=== PATIENT | female | born 1955 | race Caucasian/White ===

== ENCOUNTER 2017-01-24 13:00 | Emergency (ER) | payer OTHER ==
[~2017-01-24] VITALS: Ht 170.2 cm; Wt 75.0 kg
[~2017-01-24 13:00] MED LIST: ACET325S8 PO; ALBU17I INH; AMLO2.5T PO; ATOR20TA PO; CALC600T44 PO; CHOL50006 PO; FISH1000 PO; FLUT1SPR9; HYDR-2768 PO; LOSA50TA PO; METF500 PO; OMEP20TA39 PO; TAB-TAB PO; VITA100O PO
[2017-01-24 13:36] VITALS: BP 151/80; PULSE 80; RESP 18; TEMP 97.7; O2SAT 96
[2017-01-24] MEDS ORDERED: SODIUM CHLOR 0.9% 1000 ML INJ 1,000 ML IV ONE (13:45)
[2017-01-24] MEDS ORDERED: SODIUM CHLORIDE 0.9% FLUSH 5 ML FLUSH IVF PRN (13:45)
[2017-01-24 14:00] VITALS: RESP 18; O2SAT 96
[2017-01-24] MEDS ORDERED: FISH1000 PO (14:12)
[2017-01-24] MEDS ORDERED: ACET-703 PO (14:12)
[2017-01-24] MEDS ORDERED: ESTR42.5V PV (14:12)
[2017-01-24] MEDS ORDERED: CALTCHW5 PO (14:12)
[2017-01-24] MEDS ORDERED: [UNRECOGNIZED DRUG - OTHER] EACH EYE (14:12)
[2017-01-24] MEDS ORDERED: HYDR25TA5 PO (14:12)
[2017-01-24] MEDS ORDERED: FLUT50SP EACH NARE (14:12)
[2017-01-24] MEDS ORDERED: METF500T PO (14:12)
[2017-01-24] MEDS ORDERED: NATU400T PO (14:12)
[2017-01-24] MEDS ORDERED: LIPI20TA PO (14:12)
[2017-01-24] MEDS ORDERED: LOSA50TA PO (14:12)
[2017-01-24] MEDS ORDERED: TRAM50TA PO (14:12)
[2017-01-24] MEDS ORDERED: VITA200012 PO (14:12)
--- NOTE | 2017-01-24 14:26 | RADRPT ---
EXAM DATE/TIME: 01/24/2017 13:52 [facility] COMPARISON: No previous studies available for comparison. INDICATIONS : Lower chest and back pain. MEDICAL HISTORY : cyst on her liver. SURGICAL HISTORY : None. ENCOUNTER: Initial ACUITY: 1 day PAIN SCORE: Non-responsive. LOCATION: Bilateral chest FINDINGS: A single view of the chest demonstrates the lungs to be symmetrically aerated without evidence of mas s, infiltrate or effusion. The cardiomediastinal contours are unremarkable. Scoliotic deformity is i dentified in the thoracic spine. CONCLUSION: No acute disease. Carlos Blanac MD on January 24, 2017 at 14:24 Board Certified Radiologist. This report was verified electronically.
[2017-01-24 14:33] LABS: AUTOMATED NEUTROPHIL # 10.6 TH/MM3 (1.8-7.7); BASOPHIL # 0.1 TH/MM3 (0-0.2); BASOPHIL % 0.4 % (0.0-2.0); EOSINOPHIL % 0.2 % (0.0-4.0); HEMATOCRIT 35.8 % (35.0-46.0); HEMO FLAGS DIFF FINAL; LYMPH % 6.8 % (9.0-44.0); LYMPHOCYTE # 0.9 TH/MM3 (1.0-4.8); MEAN CELL VOLUME 96.3 FL (80.0-100.0); MEAN CORPUSCULAR HGB CONC 32.2 % (32.0-36.0); MONO % 8.7 % (0.0-8.0); NEUT % 83.9 % (16.0-70.0); PLATELET COUNT 266 TH/MM3 (150-450); RED BLOOD COUNT 3.72 MIL/MM3 (4.00-5.30); RED CELL DISTRIBUTION WIDTH 13.7 % (11.6-17.2); WHITE BLOOD COUNT 12.6 TH/MM3 (4.0-11.0)
--- NOTE | 2017-01-24 15:04 | PD ---
HPI Chief Complaint: Syncope/Near-Syncope Time Seen by Provider: 14:04 Travel History International Travel<30 days: No Contact w/Intl Traveler<30days: No Traveled to known affect area: No History of Present Illness HPI 61 y/o female presents with near syncopal event today at work. She states she' s had this before and been told it was a vasovagal episode. She states she's had pain to her right back side and into her abdomen over the past couple of days. She denies other associated complaints such as chest pain, difficulty breathing, fever or other concurrent symptoms. She states she was helped to the ground and did not hit her head or black out. She denies prior routine cardiac testing but also denies any history of cardiac issues that she knows about. PFSH Past Medical History Asthma: Yes Cancer: Yes (SKIN CANCER) Cardiovascular Problems: Yes High Cholesterol: Yes Chemotherapy: No Chest Pain: No Congestive Heart Failure: No Diabetes: Yes Patient Takes Glucophage: Yes (01/24/2017) Endocrine: Yes Genitourinary: No Hiatal Hernia: No Hypertension: Yes Immune Disorder: No Musculoskeletal: Yes (arthritis) Neurologic: No Psychiatric: No Reproductive: No Respiratory: Yes Immunizations Current: Yes Radiation Therapy: No Sleep Apnea: No ?: Not Past Surgical History Abdominal Surgery: Yes (gallbladder removal,hernia repair) Cholecystectomy: Yes Other Surgery: Yes (SKIN CANCER REMOVAL /THORACIC OUTLET SYNDROME SHANDS 2009/ ANGIO PLASTY ) Social History Alcohol Use: No Tobacco Use: No Substance Use: No Allergies-Medications (Allergen,Severity, Reaction): Coded Allergies: Penicillin (Verified Allergy, Severe, 01/24/17) Adhesives (Verified Allergy, Intermediate, blisters, 01/24/17) Erythromycin (Verified Allergy, Intermediate, 01/24/17) Ibuprofen (Verified Allergy, Intermediate, 01/24/17) Keflex (Verified Allergy, Intermediate, 01/24/17) Lisinopril (Verified Allergy, Mild, 01/24/17) Latex (Verified Allergy, Unknown, reddness, 01/24/17) Aspirin (Verified Adverse Reaction, Mild, 01/24/17) Reported Meds & Prescriptions Reported Meds & Active Scripts Active Lortab (Hydrocodone-Acetaminophen) 5-325 Mg Tab 1 Tab PO Q6H PRN Reported [Restore Eye Drops] 1 Drop EACH EYE BID Tylenol Extra Strength (Acetaminophen) 500 Mg Tab 1,000 Mg PO TID Fish Oil ([place]-3 Fatty Acids) 1,000 Mg Cap 1,000 Mg PO DAILY Vitamin E 400 Unit Tab 400 Units PO DAILY Vitamin D3 (Cholecalciferol) 2,000 Unit Tab 2,000 Units PO DAILY Caltrate 600+D (Calcium Carbonate-Vitamin D) 600-400 Mg-Unit Chew 1 Tab PO DAILY Metformin (Metformin HCl) 500 Mg Tab 500 Mg PO DAILY With a meal Fluticasone Nasal [place] 50 Mcg/Act Naspr 1 [place] EACH NARE BID Estrace Vaginal (Estradiol) 0.01% Cream 1 Appl PV TWICE A WEEK Lipitor (Atorvastatin Calcium) 20 Mg Tab 20 Mg PO DAILY Hydrochlorothiazide 25 Mg Tab 25 Mg PO DAILY Losartan (Losartan Potassium) 50 Mg Tab 50 Mg PO DAILY Tramadol (Tramadol HCl) 50 Mg Tab 50 Mg PO BID Review of Systems Except as stated in HPI: all other systems reviewed are Neg Physical Exam Narrative GENERAL: Well-nourished, well-developed patient. SKIN: Warm and dry. HEAD: Normocephalic and atraumatic. EYES: No injection or drainage. ENT: No nasal drainage noted. NECK: Supple, trachea midline. CARDIOVASCULAR: Regular rate and rhythm RESPIRATORY: Breath sounds equal bilaterally. No accessory muscle use. GASTROINTESTINAL: Abdomen soft,ttp in right mid lateral abdomen, nondistended. NEUROLOGICAL: Awake and alert. Motor and sensory grossly within normal limits. Normal speech. Data Data Last Documented VS Vital Signs Date Time Temp Pulse Resp B/P Pulse Ox O2 Delivery O2 Flow Rate FiO2 01/24/17 18:13 78 17 149/70 99 Room Air 01/24/17 13:36 97.7 Orders Electrocardiogram (01/24/17 13:45) Complete Blood Count With Diff (01/24/17 13:45) Comprehensive Metabolic Panel (01/24/17 13:45) Magnesium (Mg) (01/24/17 13:45) Ckmb (Isoenzyme) Profile (01/24/17 13:45) Troponin I (01/24/17 13:45) Act Partial Throm Time (Ptt) (01/24/17 13:45) Prothrombin Time / Inr (Pt) (01/24/17 13:45) Urinalysis - C+S If Indicated (01/24/17 13:45) Chest, Single Ap (01/24/17 13:45) Ecg Monitoring (01/24/17 13:45) Iv Access Insert/Monitor (01/24/17 13:45) Oximetry (01/24/17 13:45) Sodium Chloride 0.9% Flush (Ns Flush) (01/24/17 13:45) Sodium Chlor 0.9% 1000 Ml Inj (Ns 1000 M (01/24/17 13:45) Ct Abd/Pel W/O Iv Contrast (01/24/17 ) Acetamin-Hydrocod 325-5 Mg ([place] 5-325 (01/24/17 17:30) Labs Laboratory Tests Test 01/24/17 01/24/17 01/24/17 14:10 15:45 16:25 White Blood Count 12.6 TH/MM3 Red Blood Count 3.72 MIL/MM3 Hemoglobin 11.5 GM/DL Hematocrit 35.8 % Mean Corpuscular Volume 96.3 FL Mean Corpuscular Hemoglobin 31.0 PG Mean Corpuscular Hemoglobin 32.2 % Concent Red Cell Distribution Width 13.7 % Platelet Count 266 TH/MM3 Mean Platelet Volume 9.0 FL Neutrophils (%) (Auto) 83.9 % Lymphocytes (%) (Auto) 6.8 % Monocytes (%) (Auto) 8.7 % Eosinophils (%) (Auto) 0.2 % Basophils (%) (Auto) 0.4 % Neutrophils # (Auto) 10.6 TH/MM3 Lymphocytes # (Auto) 0.9 TH/MM3 Monocytes # (Auto) 1.1 TH/MM3 Eosinophils # (Auto) 0.0 TH/MM3 Basophils # (Auto) 0.1 TH/MM3 CBC Comment DIFF FINAL Differential Comment Prothrombin Time 13.3 SEC Prothromb Time International 1.2 RATIO Ratio Activated Partial 27.1 SEC Thromboplast Time Sodium Level 134 MEQ/L Potassium Level 3.4 MEQ/L Chloride Level 98 MEQ/L Carbon Dioxide Level 25.6 MEQ/L Anion Gap 10 MEQ/L Blood Urea Nitrogen 15 MG/DL Creatinine 0.80 MG/DL Estimat Glomerular Filtration 73 ML/MIN Rate Random Glucose 109 MG/DL Calcium Level 8.6 MG/DL Magnesium Level 1.7 MG/DL Total Bilirubin 0.7 MG/DL Aspartate Amino Transf 15 U/L (AST/SGOT) Alanine Aminotransferase 20 U/L (ALT/SGPT) Alkaline Phosphatase 78 U/L Total Creatine Kinase 65 U/L Troponin I LESS THAN 0.02 NG/ML Total Protein 7.7 GM/DL Albumin 2.8 GM/DL Urine Color LIGHT-YELLOW Urine Turbidity HAZY Urine pH 6.5 Urine Specific [place] 1.006 Urine Protein NEG mg/dL Urine Glucose (UA) NEG mg/dL Urine Ketones 10 mg/dL Urine Occult Blood TRACE Urine Nitrite NEG Urine Bilirubin NEG Urine Urobilinogen LESS THAN 2.0 MG/DL Urine Leukocyte Esterase SMALL Urine RBC 2 /hpf Urine WBC 4 /hpf Urine Squamous Epithelial 3 /hpf Cells Urine Bacteria OCC /hpf Urine Mucus FEW /lpf Microscopic Urinalysis Comment CULT NOT INDICATED MDM Medical Decision Making Medical Screen Exam Complete: Yes Emergency Medical Condition: Yes Medical Record Reviewed: Yes (pmh confirmed) Interpretation(s) EKG is normal sinus rhythm at [address] segment elevation or depression or consecutive T-wave inversion CBC & BMP Diagram 01/24/17 14:10 01/24/17 15:45 Last 24 hours Impressions Chest X-Ray 01/24/17 1345 Signed Impressions: Service Date/Time: Tuesday, January 24, 2017 13:52 - CONCLUSION: No acute disease. Carlos Blanca MD Abdomen/Pelvis CT 01/24/17 0000 Signed Impressions: Service Date/Time: Tuesday, January 24, 2017 17:21 - CONCLUSION: 1. Polycystic liver disease. 2. Bilateral renal cysts, some several densities in the left kidney are to small to characterize and slightly hyperdense. 3. Peculiar sclerotic areas of exuberant bone formation along left lower ribs/vertebral bodies. Could be related to old fractures but metastatic lesions cannot be excluded. Bone scan may be warranted. 4. Diverticulosis without diverticulitis. 5. Status post cholecystectomy. Andrew Garcia MD patient given copy of scan for follow up Differential Diagnosis Kidney stone, musculoskeletal, gastritis, renal failure, anemia, vasovagal, electrolyte abnormality, atypical cardiac.... Narrative Course Will check blood work, chest x-ray, EKG, CT scan abdominal pelvis, urinalysis and dose with IV fluids and reevaluate CT scan shows sclerotic lesion to liver and vertebral bodies without prior for comparison, liver and renal cysts noted. Patient updated, will call primary for close follow-up Patient denies any new complaints and states that they are feeling better. Patient happy with care, all questions answered. Patient knows that follow up is incumbent on them and to return to the emergency room immediately if new or worsening symptoms develop. Patient given strict return precautions, vitals reviewed and are normal, agrees to further workup as an outpatient. Physician Communication Physician Communication dr landrum states can dc with close follow up will message primary Diagnosis Primary Impression: Near syncope Additional Impressions: Liver cyst Abdominal pain Qualified Code: R10.9 - Abdominal pain, unspecified location Patient Instructions: General Instructions Additional Instructions: return as needed, follow with primary tommorrow, lortab as needed for severe pain Med/Other Pt SpecificInfo: Prescription(s) given Scripts Hydrocodone-Acetaminophen (Lortab)5-325 Mg Tab1 Tab PO Q6H PRN (PAIN) #15 TAB Prov:Sirisha Coates MD 01/24/17 Disposition: 01 DISCHARGE HOME Condition: Stable Sirisha Coates MD Jan 24, 2017 15:03
[2017-01-24 16:14] LABS: APTT (PATIENT) 27.1 SEC (24.3-30.1); INTERNATIONAL NORMALIZED RATIO 1.2 RATIO; PROTHROMBIN TIME - PATIENT 13.3 SEC (9.8-11.6)
[2017-01-24 16:25] LABS: ANION GAP 10 MEQ/L (5-15); AST (GOT) 15 U/L (15-37); BICARBONATE 25.6 MEQ/L (21.0-32.0); BLOOD UREA NITROGEN 15 MG/DL (7-18); CHLORIDE 98 MEQ/L (98-107); GLOMERULAR FILTRATION RATE 73 ML/MIN (>89); MAGNESIUM 1.7 MG/DL (1.5-2.5); POTASSIUM 3.4 MEQ/L (3.5-5.1); SODIUM (NA) 134 MEQ/L (136-145)
[2017-01-24 16:29] LABS: ALKALINE PHOSPHATASE 78 U/L (45-117); ALT (GPT) 20 U/L (10-53); TOTAL BILIRUBIN ADULT 0.7 MG/DL (0.2-1.0)
[2017-01-24 16:31] LABS: CREATINE KINASE 65 U/L (26-192)
[2017-01-24 16:38] LABS: BACTERIA, URINE OCC /hpf; BLOOD, URINE TRACE (NEG); GLUCOSE,URINE NEG (NEG); KETONE, URINE 10 mg/dL (NEG); MUCUS URINE FEW /lpf (OCC); NITRITE,URINE NEG (NEG); PH, URINE 6.5 (5.0-8.5); SQUAMOUS EPITHELIAL CELL URINE 3 /hpf (0-5); URINE COLOR LIGHT-YELLOW (YELLW/STRAW)
[2017-01-24 16:39] LABS: COMMENT (UR) CULT NOT INDICATED; CULTURE IF INDICATED CULT NOT INDICATED
[2017-01-24] MEDS ORDERED: ACETAMINOPHEN/HYDROcodone 325 MG/5 MG TAB PO ONE (17:30)
--- NOTE | 2017-01-24 17:53 | RADRPT ---
EXAM DATE/TIME: 01/24/2017 17:21 [facility] COMPARISON: No previous studies available for comparison. INDICATIONS : Right lower quadrant and flank pain. ORAL CONTRAST: No oral contrast ingested. RADIATION DOSE: 9.83 CTDIvol (mGy) MEDICAL HISTORY : Hypertension. Diabetes mellitus type 2. SURGICAL HISTORY : Umbilical hernia repair. Cholecystectomy. ENCOUNTER: Initial ACUITY: 1 day PAIN SCALE: 5/10 LOCATION: Right lower quadrant TECHNIQUE: Volumetric scanning of the abdomen and pelvis was performed. Using automated exposure control and ad justment of the mA and/or kV according to patient size, radiation dose was kept as low as reasonably achievable to obtain optimal diagnostic quality images. FINDINGS: LOWER LUNGS: The visualized lower lungs are clear. LIVER: Homogeneous density without lesion. There is no dilation of the biliary tree. Cholecystectomy clips. Numerous low-density lesions throughout the liver likely polycystic liver disease. SPLEEN: Normal size without lesion. PANCREAS: Within normal limits. KIDNEYS: Normal in size and shape. There is no mass, stone, or hydronephrosis. Bilateral renal cysts. There a re some hyperdense lesions left kidney. ADRENAL GLANDS: Right adrenal gland slightly prominent. VASCULAR: There is no aortic aneurysm. BOWEL/MESENTERY: Diverticulosis of the colon. There is no free intraperitoneal air or fluid. ABDOMINAL WALL: Within normal limits. RETROPERITONEUM: There is no lymphadenopathy. BLADDER: No wall thickening or mass. REPRODUCTIVE: Within normal limits. INGUINAL: There is no lymphadenopathy or hernia. MUSCULOSKELETAL: Scoliotic changes. There are some sclerotic areas of prominent callus formation along some left poste rior medial ribs and costovertebral junctions of uncertain etiology. Could be related to old fracture s or metastatic lesions. CONCLUSION: 1. Polycystic liver disease. 2. Bilateral renal cysts, some several densities in the left kidney are to small to characterize and slightly hyperdense. 3. Peculiar sclerotic areas of exuberant bone formation along left lower ribs/vertebral bodies. Could be related to old fractures but metastatic lesions cannot be excluded. Bone scan may be warranted. 4. Diverticulosis without diverticulitis. 5. Status post cholecystectomy. Andrew Garcia MD on January 24, 2017 at 17:43 Board Certified Radiologist. This report was verified electronically.
[2017-01-24 18:13] VITALS: BP 149/70; PULSE 78; RESP 17; O2SAT 99
[2017-01-24] MEDS ORDERED: HYDR-3533 PO (18:24)
--- NOTE | 2017-01-25 18:46 | EKG ---
Date Performed: 01/24/2017 Time Performed: 14:20:18 PTAGE: 61 years EKG: Sinus rhythm LOW QRS VOLTAGE IN PRECORDIAL LEADS ANTERIOR MYOCARDIAL INFARCTION INFERIOR MYOCARDIAL INFARCTION AB NORMAL ECG PREVIOUS TRACING : 04/23/2008 11.42 DOCTOR: Miles Tadeo Interpretating Date/Time 01/25/2017 18:40:43
== END 2017-01-24 20:12 | disposition home or self-care (01) ==
LOC: NEPC 13:00
DX: R55 Syncope and collapse (principal); K76.89 Other specified diseases of liver; R10.9 Unspecified abdominal pain; J45.909 Unspecified asthma, uncomplicated; E78.00 Pure hypercholesterolemia, unspecified; E11.9 Type 2 diabetes mellitus without complications; I10 Essential (primary) hypertension
CPT/HCPCS: 71010; 74176; 80053; 81001; 82550; 83735; 84484; 85025; 85610; 85730; 93005; 96360; 99285; J7030

== ENCOUNTER 2017-02-17 07:46 | Day surgery (SDC) | payer OTHER ==
[~2017-02-17] VITALS: Ht 171.4 cm; Wt 72.7 kg
[~2017-02-17 07:46] MED LIST changes: +ACET-703 PO; -ACET325S8 PO; -ALBU17I INH; -AMLO2.5T PO; -ATOR20TA PO; -CALC600T44 PO; +CALTCHW5 PO; -CHOL50006 PO; +ESTR42.5V PV; -FLUT1SPR9; +FLUT50SP EACH NARE; -HYDR-2768 PO; +HYDR-3533 PO; +HYDR25TA5 PO; +LIPI20TA PO; -METF500 PO; +METF500T PO; +NATU400T PO; -OMEP20TA39 PO; -TAB-TAB PO; +TRAM50TA PO; -VITA100O PO; +VITA200012 PO; +[UNRECOGNIZED DRUG - OTHER] EACH EYE
[2017-02-17] MEDS ORDERED: VENTAER INH (08:05)
[2017-02-17 08:06] VITALS: BP 135/86; PULSE 84; RESP 20; TEMP 97.8; O2SAT 97
[2017-02-17] MEDS ORDERED: SODIUM CHLORIDE 0.9% FLUSH 10 ML FLUSH IV FLUSH PRN ×2 (08:30)
[2017-02-17] MEDS ORDERED: SODIUM CHLOR 0.9% 1000 ML IV SCH (08:30)
[2017-02-17] MEDS ORDERED: LIDOCAINE 1%/EPINEPHrine 1:100,000 SOLN 20 ML VIAL ONE (09:01)
[2017-02-17] MEDS ORDERED: fentaNYL CITRATE 250 MCG/5 ML AMP ONE (09:09)
[2017-02-17] MEDS ORDERED: MIDAZOLAM HCL 5 MG/5 ML VIAL ONE (09:09)
[2017-02-17 10:05] VITALS: BP 134/72; PULSE 87; RESP 18; TEMP 97.6; O2SAT 98
[2017-02-17 10:20] VITALS: BP 120/69; PULSE 86; RESP 18; O2SAT 94
[2017-02-17 10:50] VITALS: BP 118/68; PULSE 80; RESP 18; O2SAT 94
[2017-02-17] MEDS ORDERED: HYDROmorphone HCL 2 MG TAB PO PRN (11:15)
[2017-02-17 11:20] VITALS: BP 136/79; PULSE 82; RESP 18; O2SAT 96
--- NOTE | 2017-02-17 11:42 | PD.RAD ---
Post CT Procedure Prog Note Pre Procedure Diagnosis: (1) Liver cyst Post Procedure Diagnosis: (1) Liver cyst Procedure Date: Feb 17, 2017 Supervising Radiologist: Kaleb Guzman Proceduralist/Assist: RT Ramon(R)(CT) Anesthesia: Conscious Sedation Plan of Activity Patient to Unit: ROPU Patient Condition: Good See PACS Report for procedural detail/treatment Drainage Procedure Procedure 1 Procedure Type: Aspiration (liver cyst right lobe) Fluid Removal (CCs): 1000 Fluid Description: Bloody Kaleb Guzman MD Feb 17, 2017 11:42
[2017-02-17 11:50] VITALS: BP 119/66; PULSE 94; RESP 18; O2SAT 97
--- NOTE | 2017-02-17 13:28 | RADRPT ---
EXAM DATE/TIME: 02/17/2017 09:23 [facility] COMPARISON: No previous studies available for comparison. INDICATIONS : Polycystic liver. SEDATION TIME: 20 minutes MEDICATION(S): 1.) 3 mg midazolam (Versed) IV 2.) 200 mcg fentanyl (Sublimaze) IV DEVICE(S): 1.) Skater 7FR FLUID: Total volume of 1000 cc of pérez fluid was removed. Fluid was discarded. MEDICAL HISTORY : Chronic obstructive pulmonary disease. Diabetes mellitus type 2. Chronic kidney disease. Polycystic liver. Asthma. SURGICAL HISTORY : None. ENCOUNTER: Initial ACUITY: 1 day PAIN SCORE: 0/10 LOCATION: Right liver PROCEDURE: 1.) Conscious sedation with continuous EKG and oximetry monitoring. 2.) EKG and oximetry remained stable throughout the procedure. PROCEDURE : CT guided hepatic cyst drainage. The risks, benefits and alternatives to the procedure were explained and verbal and written consent w as obtained. Using automated exposure control and adjustment of the mA and/or kV according to patien t size, radiation dose was kept as low as reasonably achievable to obtain optimal diagnostic quality images. The site was prepped in sterile fashion. Full sterile technique was used, including cap, ma sk, sterile gloves and gown and a large sterile sheet. Hand hygiene and 2% chlorhexidine and/or beta dine/alcohol prep was utilized per protocol for cutaneous antisepsis. The skin and subcutaneous tiss ues were infiltrated with local anesthetic solution. The largest cyst in the right liver was punctured with the described catheter and 1000 cc of bloody f luid was removed without difficulty. Postprocedure images demonstrate expected changes. CONCLUSION: Uncomplicated hepatic cyst drainage as above. Kaleb Guzman MD on February 17, 2017 at 13:26 Board Certified Radiologist. This report was verified electronically.
== END 2017-02-17 13:15 | disposition home or self-care (01) ==
LOC: HRAD 07:46 → HRIP 07:47 → HRAD 13:15
PROVIDERS: ATTEND Surgery
DX: K76.89 Other specified diseases of liver (principal); N18.9 Chronic kidney disease, unspecified; E11.9 Type 2 diabetes mellitus without complications; J44.9 Chronic obstructive pulmonary disease, unspecified; J45.909 Unspecified asthma, uncomplicated
CPT/HCPCS: 10160; 77012; C1729; J2250; J3010; J7030

== ENCOUNTER 2018-03-09 06:25 | Day surgery (SDC) | payer OTHER ==
[~2018-03-09] VITALS: Ht 170.2 cm; Wt 80.9 kg
[~2018-03-09 06:25] MED LIST changes: -TRAM50TA PO; +VENTAER INH
[2018-03-09] MEDS ORDERED: SODIUM CHLORIDE 0.9% 1000 ML IV SCH (07:00)
[2018-03-09] MEDS ORDERED: LIDOCAINE 1%/EPINEPHrine 1:100,000 SOLN 50 ML VIAL ONE (07:17)
[2018-03-09] MEDS ORDERED: MIDAZOLAM HCL 2 MG/2 ML VIAL ONE ×2 (07:37→08:09)
--- NOTE | 2018-03-09 08:54 | PD.RAD ---
Post CT Procedure Prog Note Pre Procedure Diagnosis: (1) Liver cyst Post Procedure Diagnosis: (1) Liver cyst Procedure Date: Mar 09, 2018 Supervising Radiologist: Andrew Garcia Proceduralist/Assist: david Starkey Estimated blood loss: none Anesthesia: Conscious Sedation Plan of Activity Patient to Unit: ROPU Patient Condition: Good See PACS Report for procedural detail/treatment Andrew Garcia MD Mar 09, 2018 08:54
[2018-03-09 09:05] VITALS: BP 135/80; PULSE 81; RESP 20; TEMP 97.5; O2SAT 95
[2018-03-09 09:15] VITALS: BP 127/70; PULSE 74; RESP 20; O2SAT 94
[2018-03-09 09:30] VITALS: BP 113/66; PULSE 74; RESP 20; O2SAT 95
[2018-03-09 10:00] VITALS: BP 122/69; PULSE 72; RESP 20; O2SAT 96
[2018-03-09 10:30] VITALS: BP 118/75; PULSE 69; RESP 20; O2SAT 95
--- NOTE | 2018-03-09 14:56 | RADRPT ---
EXAM DATE/TIME: 03/09/2018 08:11 [facility] COMPARISON: CT GUIDED LIVER ASPIRATION, February 17, 2017, 9:23. INDICATIONS : Liver cysts. SEDATION TIME: 45 MEDICATION(S): 1.) 4 mg midazolam (Versed) IV 2.) 200 mcg fentanyl (Sublimaze) IV DEVICE(S): 1.) 18 gauge Christensen blunt needle 15cm FLUID: Total volume of 1600 cc of tracy fluid was removed. Fluid was discarded. MEDICAL HISTORY : Chronic kidney disease, malignant melanoma SURGICAL HISTORY : None. ENCOUNTER: Initial ACUITY: 1 day PAIN SCORE: 0/10 LOCATION: Right lateral PROCEDURE: 1.) Conscious sedation with continuous EKG and oximetry monitoring. PROCEDURE : CT guided aspiration of 4 of the larger cysts in the liver. The risks, benefits and alternatives to the procedure were explained and verbal and written consent w as obtained. Using automated exposure control and adjustment of the mA and/or kV according to patien t size, radiation dose was kept as low as reasonably achievable to obtain optimal diagnostic quality images. The site was prepped in sterile fashion. Full sterile technique was used, including cap, ma sk, sterile gloves and gown and a large sterile sheet. Hand hygiene and 2% chlorhexidine and/or beta dine/alcohol prep was utilized per protocol for cutaneous antisepsis. The skin and subcutaneous tiss ues were infiltrated with local anesthetic solution. DICOM format image data is available electronic ally for review and comparison. Christensen needle was placed within multiple cysts in the right lobe. Patient tolerated procedure well w ithout immediate complications. Approximately 1.6 L of straw-colored fluid aspirated. CONCLUSION: Uncomplicated aspiration of several large liver cysts as above. Andrew Garcia MD on March 09, 2018 at 14:52 Board Certified Radiologist. This report was verified electronically.
== END 2018-03-09 11:20 | disposition home or self-care (01) ==
LOC: HRAD 06:25 → HRIP 06:31 → HRAD 11:20
PROVIDERS: ATTEND Surgery
DX: K76.89 Other specified diseases of liver (principal)
CPT/HCPCS: 10160; 77012; 99152; 99153; J2250; J3010; J7030